=== PATIENT | female | born 1960 | race Two or more races ===

== ENCOUNTER 2019-08-08 13:02 | Emergency (ER) | payer BC ==
[2019-08-08 13:48] VITALS: BP 140/95
--- NOTE | 2019-08-08 14:03 | UC ---
Skin Complaint HPI - HPI Summary HPI Summary: 59-year-old female presents with complaints of a painful, itchy rash. States started yesterday as a couple red bumps that she thought were from bug bites but rash has continued to spread and develop blisters. Last night pain was waking her up from sleep. Describes as a burning pain. Denies fever, chills, changes in soaps, detergents, lotions, medications, diet, or known contact with environmental irritants. - History of Current Complaint Chief Complaint: UCSkin Time Seen by Provider: 08/08/19 13:50 Stated Complaint: SKIN COMPLAINT Hx Obtained From: Patient Pain Intensity: 0 - Allergy/Home Medications Allergies/Adverse Reactions: Allergies Allergy/AdvReac Type Severity Reaction Status Date / Time No Known Allergies Allergy Verified 08/08/19 13:36 Home Medications: Home Medications Atorvastatin* [Lipitor*] 10 mg PO 1700 08/08/19 [History Confirmed 08/08/19] Valacyclovir HCl [Valacyclovir] 1,000 mg PO TID #21 tablet 08/08/19 [Rx] PMH/Surg Hx/FS Hx/Imm Hx Endocrine History: Dyslipidemia - Surgical History Surgical History: Yes Surgery Procedure, Year, and Place: Tubal - Family History Family History: Denies significant FMH - Social History Occupation: Employed Full-time Lives: With Family Alcohol Use: None Substance Use Type: None Smoking Status (MU): Current Every Day Smoker Review of Systems All Other Systems Reviewed And Are Negative: Yes Constitutional: Negative: Fever, Chills Skin: Positive: Rash - See HPI Respiratory: Positive: Negative Cardiovascular: Positive: Negative Gastrointestinal: Positive: Negative Genitourinary: Positive: Negative Musculoskeletal: Positive: Negative Neurological/Mental Status: Positive: Negative Is Patient Immunocompromised?: No Physical Exam - Summary Physical Exam Summary: GENERAL APPEARANCE: Well developed, well nourished, alert and cooperative, and appears to be in no acute distress. CARDIAC: Normal S1 and S2. No S3, S4 or murmurs. Rhythm is regular. There is no peripheral edema, cyanosis or pallor. Extremities are warm and well perfused. Capillary refill is less than 2 seconds. Peripheral pulses intact. LUNGS: Clear to auscultation without rales, rhonchi, wheezing or diminished breath sounds. ABDOMEN: Positive bowel sounds. Soft, nondistended, nontender. No guarding or rebound. No masses or hepatosplenomegally. MUSKULOSKELETAL: ROM intact to all extremities. No joint erythema or tenderness. Normal muscular development. Normal gait. SKIN: Skin normal color, texture and turgor. Dermatomal, vesicular, erythematous rash to the posterior left ankle with intact buellae. Triage Information Reviewed: Yes Vital Signs: Initial Vital Signs Temp 98.3 F 08/08/19 13:37 Pulse 82 08/08/19 13:37 Resp 18 08/08/19 13:37 BP 140/95 08/08/19 13:37 Pulse Ox 100 08/08/19 13:37 Vital Signs Reviewed: Yes Course/Dx - Course Course Of Treatment: 59-year-old female presents with complaints of a painful, itchy rash. States started yesterday as a couple red bumps that she thought were from bug bites but rash has continued to spread and develop blisters. Last night pain was waking her up from sleep. Describes as a burning pain. Denies fever, chills, changes in soaps, detergents, lotions, medications, diet, or known contact with environmental irritants. Afebrile. Mildly hypertensive otherwise vital signs stable. Pateint had a dermatomal, vesicular, erythematous rash to the posterior left ankle with intact buellae consistent with herpes zoster. Remainder of exam unremarkable. Discussed findings with the patient and will start her on valacyclovir 1000 mg 3 times a day 7 days. She is to follow-up with her primary care provider in 5-7 days if symptoms continue to progress. Anticipatory guidance and warning symptoms were reviewed with the patient. Verbalizes understanding and agrees with plan of care. - Differential Diagnoses - Skin Complaint Differential Diagnoses: Allergic Reaction, Cellulitis, Contact Dermatitis, Local Allergic Reaction, Poison [place], Poison [place], Varicella Zoster - Diagnoses Provider Diagnosis: Herpes zoster Discharge ED - Sign-Out/Discharge Documenting (check all that apply): Patient Departure All imaging exams completed and their final reports reviewed: No Studies - Discharge Plan Condition: Stable Disposition: HOME Prescriptions: Valacyclovir HCl [Valacyclovir] 1,000 mg PO TID #21 tablet Patient Education Materials: Shingles (ED) Forms: *Work Release Referrals: Jose Alfredo Morel MD [Primary Care Provider] - 3 Days Additional Instructions: Start valacyclovir 1000 mg 1 capsule 3 times a day for 7 days. Use ibuprofen (Advil, Motrin) or naproxen (Aleve) according to directions as needed for pain. Follow up with your primary care provider in 5-7 days if symptoms are not improving. Seek immediate medical attention if you develop a fever greater than 100.5 F, have redness that rapidly spreads, severe pain not managed with pain medication , or any worsening of symptoms. - Billing Disposition and Condition Condition: STABLE Disposition: Home
== END 2019-08-08 14:18 | disposition home or self-care (01) ==
LOC: UCEAST 13:02
DX: B02.9 Zoster without complications (principal); E78.5 Hyperlipidemia, unspecified; Z79.899 Other long term (current) drug therapy; Z72.0 Tobacco use
CPT/HCPCS: 99201; G0463